=== PATIENT | male | born 1985 | race American Indian/Alaskan Native ===

== ENCOUNTER 2021-09-26 20:49 | Emergency (ER) | payer OTHER, BC ==
--- NOTE | 2021-09-26 22:47 | XRay Report ---
RIGHT WRIST 4 VIEW(S) INDICATION / CLINICAL INFORMATION: INJURY COMPARISON: None available. FINDINGS: No fracture, dislocation, or significant soft tissue abnormality is demonstrated. No radiopaque forei gn bodies are identified. IMPRESSION: 1. No acute findings. Signer Name: Tyrel Anna II, MD Signed: 09/26/2021 10:43 PM Workstation Name: [id number]
[2021-09-27] MEDS ORDERED: IBUPROFEN 800 MG TAB PO ONE (12:34)
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
[2021-09-27 13:11] VITALS: BP 112/74
== END 2021-09-27 13:40 | disposition home or self-care (01) ==
LOC: ED 20:49
DX: S69.91XA Unspecified injury of right wrist, hand and finger(s), initial encounter (principal); V89.2XXA Person injured in unspecified motor-vehicle accident, traffic, initial encounter; Y93.89 Activity, other specified; Y92.89 Other specified places as the place of occurrence of the external cause; Y99.8 Other external cause status
CPT/HCPCS: 99283